=== PATIENT | male | born 1945 | race Caucasian/White ===

== ENCOUNTER 2017-11-11 14:44 | Inpatient (IN) ==
[2017-11-11] MEDS ORDERED: SALINE FLUSH 10ml SYRINGE IVF PRN (15:04)
[2017-11-11] MEDS ORDERED: ALBUTEROL/IPRATROPIUM 2.5mg-0.5mg/3ml NEB AEROSOL ONE (15:04)
--- NOTE | 2017-11-11 15:50 | Emergency Department Report ---
SOB HPI - General Chief Complaint: Shortness of Breath/Dyspnea <Shaun Garcia Yg 11/11/17 17:27> Stated Complaint: soa,weakness <Shaun Garcia Yg 11/11/17 17:27> Source: patient <Nichol Green 11/11/17 15:52> Mode of arrival: wheelchair <Nichol Green 11/11/17 15:52> Limitations: no limitations <Nichol Green 11/11/17 15:52> - History of Present Illness Pt presents with a c/o SOA for the last 2 days. Pt has an extensive history of diabetes, COPD, iain BKA etc. PT continues to smoke and is morbidly obese. Pt is vague in his complaint. He does report no BM for the last 3 days and pain to his right lower abdomen where he gives himself insulin. Pt denies fever, chest pain, nausea, vomiting, productive cough, dizziness, or KHALIL <Nichol Green 11/11/17 15:52> MD Complaint: shortness of breath <Nichol Green 11/11/17 15:52> Onset (ago): unknown <Nichol Green 11/11/17 15:52> Context: recent illness (pneumonia a month ago) <Nichol Green 15:52> Consistency/Duration: constant <Nichol Green 11/11/17 15:52> Relieving factors: nothing <Nichol Green 11/11/17 15:52> Exacerbating factors: lying flat, exertion, movement, coughing <Nichol Green 11/11/17 15:52> Known history of: COPD, diabetes <Nichol Green 11/11/17 15:52> - Related Data Home Medications Medication Instructions Recorded Confirmed Trazodone HCl 150 mg PO HS PRN #0 10/18/14 11/11/17 Albuterol HFA Inhaler [Ventolin 2 puff ORAL INH Q4HR PRN 09/06/17 11/11/17 Hfa 90 mcg/actuation] Bumetanide [Bumetanide] 4 mg PO BID 09/06/17 11/11/17 Carvedilol [Coreg] 6.25 mg PO BID 09/06/17 11/11/17 Insulin Aspart [Novolog Flexpen] 20 unit SQ TIDWM 09/06/17 11/11/17 Insulin Detemir [Levemir] 20 unit SQ HS 09/06/17 11/11/17 Levothyroxine Sodium 25 mcg PO DAILY 09/06/17 11/11/17 [Levothyroxine Sodium] Levothyroxine Sodium 300 mcg PO DAILY 09/06/17 11/11/17 [Levothyroxine Sodium] Stiolto Respimat (tiotropium) 2.5 2 puff INH DAILY 10/07/17 11/11/17 mcg-olodaterol 2.5 mcg/actuation inhalation Aspirin [ASA] 325 mg PO HS 11/11/17 11/11/17 Cholecalciferol [Vit. D-3] 2,000 unit PO DAILY 11/11/17 11/11/17 Simvastatin [Zocor] 40 mg PO HS 11/11/17 11/11/17 Previous Rx's Medication Instructions Recorded Neurontin (gabapentin) 300 mg 300 mg PO TID #270 cap 10/07/17 capsule <Shaun Garcia 11/11/17 17:27> Allergies Allergy/AdvReac Type Severity Reaction Status Date / Time Tetanus Vaccines and Toxoid Allergy Mild EDEMA Verified 10/07/17 15:07 Penicillins Allergy Unknown Verified 10/07/17 15:07 <Shaun Garcia 11/11/17 17:27> Review of Systems All systems: reviewed and negative except as stated <Nichol Green 01/24 15:52> Constitutional: Reports: as per HPI <Nichol Green 11/11/17 15:52> Cardiovascular: Reports: as per HPI <Nichol Green 11/11/17 15:52> Respiratory: Reports: as per HPI <Nichol Green 11/11/17 15:52> Gastrointestinal: Reports: as per HPI <Nichol Green 11/11/17 15:52> Musculoskeletal: Reports: as per HPI <Nichol Green 11/11/17 15:52> Neurological: Reports: as per HPI <Nichol Green 11/11/17 15:52> PFSH Patient Stated Medical History Cataracts Yes Coronary Artery Disease Yes Myocardial Infarction Yes Chronic Obstructive Pulmonary Yes Disease (COPD) Diabetes Mellitus Type 2 Yes: INSULIN DEPENDENT Gastroesophageal Reflux Yes Disease Hx Renal Disease Yes MRSA Yes Post Traumatic Stress Disorder Yes Clinic Medical History Depression (Chronic Medical) Noncompliance with diet and medication regimen (Chronic Medical) Hypogonadism in male (Chronic Medical) Morbid obesity (Chronic Medical) PVD (peripheral vascular disease) (Chronic Medical) Chronic kidney disease (CKD) stage G3a/A1, moderately decreased glomerular filtration rate (GFR) between 45-59 mL/min/1.73 square meter and albuminuria creatinine ratio less than 30 mg/g (Chronic Medical) Hypothyroidism (Chronic Medical) ASCVD (arteriosclerotic cardiovascular disease) (Chronic Medical) COPD (chronic obstructive pulmonary disease) (Chronic Medical) Tobacco Abuse Type 2 diabetes mellitus treated with insulin (Chronic Medical) <Shaun Garcia - 11/11/17 17:27> Surgical History: 1) 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 2) Right Femoral Posterior Tibial Bypass 11/17. 3) Cholecystectomy. 4) Stents in leg. 5) Tonsillectomy. 6) Negative screening Colonoscopy - 2009 <Nichol Green 11/11/17 15:52> - Social History Smoking status: Current every day smoker <Nichol Green 11/11/17 15:52> Packs-years: 52 <Nichol Green 11/11/17 15:52> Alcohol intake frequency: does not drink <Nichol Green 11/11/17 15:52> Current occupational status: retired <Nichol Green 11/11/17 15:52> Physical Exam - Limitations Limitations: no limitations <Nichol Green 11/11/17 15:52> - General General appearance: alert, in no apparent distress <Nichol Green 11/11 15:52> - Normal Exams: Head:: Normocephalic without trauma <Nichol Green 11/11/17 15:52> Eyes:: Pupils are PERRLA w/ EOMI <Nichol Green 11/11/17 15:52> Neck:: Full range of motion, without adenopathy <Nichol Green 15:52> Cardiovascular:: Regular rate and rhythm, without murmur or gallop, Pulses 2+ all extremities, capillary refill, <2 seconds all extremities <Nichol Green 11/11/17 15:52> Musculoskeletal:: No tenderness, or deformity noted, good range of motion, all extremities <Nichol Green 11/11/17 15:52> Integumentary:: No rashes <Nichol Green 11/11/17 15:52> Neurological:: Patient is alert, and oriented, cranial nerves, motor/sensory/ cerebellar, exams w/o gross deficits, to observation <Nichol Green 01/24 15:52> - Expanded Respiratory Exam Location: Left: wheezes, rhonchi, decreased breath sounds, Right: wheezes, rhonchi, Upper: wheezes, rhonchi, Lower: wheezes, rhonchi, decreased breath sounds <Nichol Green 11/11/17 15:52> - Abdominal Exam Abdominal exam: Present: distention, hyperactive bowel sounds <Nichol Green 11/11/17 15:52> Course Vital Signs Blood Pressure 149/65 H 11/11/17 14:56 Temperature 98.5 F 11/11/17 14:57 Pulse Rate 73 11/11/17 15:32 Respiratory Rate 15 11/11/17 15:56 Blood Pressure 133/57 11/11/17 15:32 Pulse Oximetry 100 11/11/17 15:56 <Shaun Garcia - 11/11/17 17:27> Shortness of Breath/Dyspnea - MDM Narrative Medical decision making narrative: Lab, X ray, and EKG reviewed. Pt reports some relief of SOA after Duoneb treatment. Hospitalist notified of findings and will admit pt as observation at this time with a consult to pt claims consultant. Findings discussed with pt who voices understanding of further care. <Nichol Green 11/11/17 17:12> - Differential Diagnosis Likely: acute exacerbation of chronic obstructive airways disease, congestive heart failure, community acquired pneumonia, asthma with exacerbation ( constipation, SBO) <Nichol Green R - 11/11/17 15:52> - Lab Data Attestation: I reviewed the patient's lab results. <Nichol Green R - 11/11 17:12> Result diagrams: 11/11/17 15:36 11/11/17 15:36 <Shaun Garcia C - 11/11/17 17:27> Lab Results 11/11/17 11/11/17 Range/Units 15:36 15:36 WBC 5.6 (4.5-11.0) T/MM3 RBC 4.51 (4.50-5.90) M/MM3 Hgb 13.0 L (13.5-17.5) GM/DL Hct 45.1 (41-53) % MCV 100.0 (80-100) UM3 MCH 28.8 (26-34) UUG MCHC 28.8 L (31-37) GM/DL RDW Std Deviation 66.4 H (36.9-50.2) FL Plt Count 108 L (130-400) T/MM3 MPV 11.0 (9.4-12.4) UM3 Immature Gran % (Auto) 0.4 (0.0-0.5) % Neut % (Auto) 78.4 H (33-66) % Lymph % (Auto) 11.3 L (23-45) % [place] % (Auto) 8.2 (0-9.0) % Eos % (Auto) 1.2 (0-4) % Baso % (Auto) 0.5 (0-2) % Neut # (Auto) 4.4 (1.8-7.7) T/MM3 Lymph # (Auto) 0.6 L (1-4.8) T/MM3 [place] # (Auto) 0.5 (0-0.8) T/MM3 Eos # (Auto) 0.1 (0-0.5) T/MM3 Baso # (Auto) 0.0 (0-0.2) T/MM3 Abs Immat Gran (auto) 0.02 (0.00-0.03) T/MM3 Turbidity < 20 (0-20) Sodium 142 (134-144) MEQ/L Potassium 5.4 H (3.6-5) MEQ/L Chloride 96 L (98-107) MEQ/L Carbon Dioxide 35 H (22-30) MEQ/L Anion Gap 11 (5-15) MEQ/L BUN 52.0 H* (9-20) MG/DL Creatinine 2.7 H (0.8-1.5) mg/dL GFR Calculation 23 BUN/Creatinine Ratio 19 (6-26) RATIO Glucose 124 H (75-110) MG/DL Calculated Osmolality 288 H (261-280) MOSM/KG Calcium 8.5 (8.4-10.2) MG/DL Total Bilirubin 0.70 (0.20-1.30) MG/DL Icterus Index < 2 (0-7) AST 15 L (17-59) U/L ALT 29 (21-72) U/L Alkaline Phosphatase 147 H (38-126) U/L Troponin I 0.026 (0-0.12) ng/ml NT-Pro-B Natriuret Pep 99386 H (0-175) pg/mL Total Protein 7.3 (6.3-8.2) g/dL Albumin 3.8 (3.5-5.0) g/dL Globulin 3.5 (2.4-3.6) G/DL Albumin/Globulin Ratio 1.1 (1.1-2.2) RATIO Specimen Hemolysis < 15 (0-25) <Shaun Garcia - 11/11/17 17:27> Lab Results 11/11/17 11/11/17 Range/Units 15:36 15:36 WBC 5.6 (4.5-11.0) T/MM3 RBC 4.51 (4.50-5.90) M/MM3 Hgb 13.0 L (13.5-17.5) GM/DL Hct 45.1 (41-53) % MCV 100.0 (80-100) UM3 MCH 28.8 (26-34) UUG MCHC 28.8 L (31-37) GM/DL RDW Std Deviation 66.4 H (36.9-50.2) FL Plt Count 108 L (130-400) T/MM3 MPV 11.0 (9.4-12.4) UM3 Immature Gran % (Auto) 0.4 (0.0-0.5) % Neut % (Auto) 78.4 H (33-66) % Lymph % (Auto) 11.3 L (23-45) % [place] % (Auto) 8.2 (0-9.0) % Eos % (Auto) 1.2 (0-4) % Baso % (Auto) 0.5 (0-2) % Neut # (Auto) 4.4 (1.8-7.7) T/MM3 Lymph # (Auto) 0.6 L (1-4.8) T/MM3 [place] # (Auto) 0.5 (0-0.8) T/MM3 Eos # (Auto) 0.1 (0-0.5) T/MM3 Baso # (Auto) 0.0 (0-0.2) T/MM3 Abs Immat Gran (auto) 0.02 (0.00-0.03) T/MM3 Turbidity < 20 (0-20) Sodium 142 (134-144) MEQ/L Potassium 5.4 H (3.6-5) MEQ/L Chloride 96 L (98-107) MEQ/L Carbon Dioxide 35 H (22-30) MEQ/L Anion Gap 11 (5-15) MEQ/L BUN 52.0 H* (9-20) MG/DL Creatinine 2.7 H (0.8-1.5) mg/dL GFR Calculation 23 BUN/Creatinine Ratio 19 (6-26) RATIO Glucose 124 H (75-110) MG/DL Calculated Osmolality 288 H (261-280) MOSM/KG Calcium 8.5 (8.4-10.2) MG/DL Total Bilirubin 0.70 (0.20-1.30) MG/DL Icterus Index < 2 (0-7) AST 15 L (17-59) U/L ALT 29 (21-72) U/L Alkaline Phosphatase 147 H (38-126) U/L Troponin I 0.026 (0-0.12) ng/ml NT-Pro-B Natriuret Pep 93640 H (0-175) pg/mL Total Protein 7.3 (6.3-8.2) g/dL Albumin 3.8 (3.5-5.0) g/dL Globulin 3.5 (2.4-3.6) G/DL Albumin/Globulin Ratio 1.1 (1.1-2.2) RATIO Specimen Hemolysis < 15 (0-25) <Nichol Green 11/11/17 17:12> - Radiology Data Attestation: I reviewed the patient's radiology results. (read per Dr Segura) <Ncihol Green 11/11/17 17:12> - EKG Data EKG #1 EKG attestation: Yes: I reviewed and interpreted this EKG. <Nichol Green 11/11/17 17:12> EKG results narrative: Sinus rhythm with first-degree AV block. Right bundle branch block. 72 bpm. No STEMI. Similar to to 03/24. <Luz Garciak Yg Del Valle 11/11/17 17:27> EKG shows normal: sinus rhythm <Nichol Green 11/11/17 17:12> Rate: normal <Nichol Green 11/11/17 17:12> Rhythm: NSR <Nichol Green 11/11/17 17:12> Lagro/QRS: RBBB <Nichol Green 11/11/17 17:12> Heart block present: 1st Degree <Nichol Green 11/11/17 17:12> Disposition Clinical Impression: Dyspnea Qualifiers: Dyspnea type: shortness of breath Qualified Code(s): R06.02 - Shortness of breath <Shaun Garcia Yg Eligio 11/11/17 17:27> Disposition: 02 To [facility] Acute Care <GarciaShaun Yg Eligio 11/11/17 17:27> Instructions: <Shaun Garcia 11/11/17 17:27> Prescriptions: No Action Insulin Aspart [Novolog Flexpen] 20 unit SQ TIDWM Carvedilol [Coreg] 6.25 mg PO BID Levothyroxine Sodium [Levothyroxine Sodium] 25 mcg PO DAILY Levothyroxine Sodium [Levothyroxine Sodium] 300 mcg PO DAILY Bumetanide [Bumetanide] 4 mg PO BID Insulin Detemir [Levemir] 20 unit SQ HS Aspirin [ASA] 325 mg PO HS Cholecalciferol [Vit. D-3] 2,000 unit PO DAILY Trazodone HCl 150 mg PO HS PRN #0 PRN Reason: Prn Orders Albuterol HFA Inhaler [Ventolin Hfa 90 mcg/actuation] 2 puff ORAL INH Q4HR PRN PRN Reason: Shortness Of Air/Wheezing Simvastatin [Zocor] 40 mg PO HS Neurontin (gabapentin) 300 mg capsule 300 mg PO TID #270 cap Stiolto Respimat (tiotropium) 2.5 mcg-olodaterol 2.5 mcg/actuation inhalation 2 puff INH DAILY <Shaun Garcia 11/11/17 17:27> Referrals: Baljeet Keller MD [Family Provider] - <Shaun Garcia 11/11 17:27> Forms: <Shaun Garcia 11/11/17 17:27> Time of Disposition: 17:12 <Nichol Green 11/11/17 17:12> - Seen By: midlevel <Nichol Green 11/11/17 17:12>
--- NOTE | 2017-11-11 16:06 | XRay Report ---
EXAM: XR acute abdomen series DATE: 11/11/2017 12:00 AM ENCOUNTER: Initial INDICATION: SOA, Constipation COMPARISON STUDY: Chest radiographs 09/06/2017 FINDINGS: Evaluation limited by underpenetration from patient body habitus. Life support devices: Unchanged left pectoral dual-chamber pacer device. Lungs: Normal lung volumes. No focal airspace consolidation. Normal pulmonary vasculature. Pleura: No pleural effusions. No pneumothorax. Heart and Mediastinum: Cardiomegaly. The great vessels of the thorax are within normal limits. Abdomen: Nonobstructive bowel gas pattern. Mild to moderate colonic gas and stool. No intraperitoneal free air. Cholecystectomy clips noted. Skeletal Structures: Postoperative changes of median sternotomy. The visualized skeletal structures are otherwise grossly normal. IMPRESSION: 1. Mild to moderate colonic gas and stool with a grossly nonobstructive bowel gas pattern allowing for limited penetration from patient body habitus. 2. No acute cardiopulmonary process appreciated again allowing for limitations related to patient body habitus. .
--- NOTE | 2017-11-11 17:43 | History & Physical Report ---
History of Present Illness Date: 11/11/17 Chief complaint: weakness HPI: This is 72-year-old patient of Dr. Matos and Dr Dee who states that for the past 5 days he has become increasingly weak and fatigued. Despite his bilateral amputation he is normally independently functional but today required assistance just with use of the bathroom from his . He completed a course of steroids and antibiotics just 2 days prior to beginning to feel the way he is today. He denies fevers chills nausea diarrhea. He knows of no sick contacts. Review of Systems All systems PM: 10-point ROS was reviewed, no additional remarkable complaints except Past Medical History Patient Stated Medical History Cataracts Yes Coronary Artery Disease Yes Myocardial Infarction Yes Chronic Obstructive Pulmonary Yes Disease (COPD) Diabetes Mellitus Type 2 Yes: INSULIN DEPENDENT Gastroesophageal Reflux Yes Disease Hx Renal Disease Yes MRSA Yes Post Traumatic Stress Disorder Yes Clinic Medical History Depression (Chronic Medical) Noncompliance with diet and medication regimen (Chronic Medical) Hypogonadism in male (Chronic Medical) Morbid obesity (Chronic Medical) PVD (peripheral vascular disease) (Chronic Medical) Chronic kidney disease (CKD) stage G3a/A1, moderately decreased glomerular filtration rate (GFR) between 45-59 mL/min/1.73 square meter and albuminuria creatinine ratio less than 30 mg/g (Chronic Medical) Hypothyroidism (Chronic Medical) ASCVD (arteriosclerotic cardiovascular disease) (Chronic Medical) COPD (chronic obstructive pulmonary disease) (Chronic Medical) Tobacco Abuse Type 2 diabetes mellitus treated with insulin (Chronic Medical) Surgical History: 1) 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 2) Right Femoral Posterior Tibial Bypass 11/17. 3) Cholecystectomy. 4) Stents in leg. 5) Tonsillectomy. 6) Negative screening Colonoscopy - 2009 Family History Updates: Reviewed and no additional findings contributory - Social History Smoking status: Current every day smoker Substance use type: does not use Alcohol intake frequency: does not drink Medications Home Medications Medication Instructions Recorded Confirmed Type Trazodone HCl 150 mg PO HS PRN #0 10/18/14 11/11/17 History Albuterol HFA Inhaler [Ventolin 2 puff ORAL INH Q4HR PRN 09/06/17 11/11/17 History Hfa 90 mcg/actuation] Bumetanide [Bumetanide] 4 mg PO BID 09/06/17 11/11/17 History Carvedilol [Coreg] 6.25 mg PO BID 09/06/17 11/11/17 History Insulin Aspart [Novolog Flexpen] 20 unit SQ TIDWM 09/06/17 11/11/17 History Insulin Detemir [Levemir] 20 unit SQ HS 09/06/17 11/11/17 History Levothyroxine Sodium 25 mcg PO DAILY 09/06/17 11/11/17 History [Levothyroxine Sodium] Levothyroxine Sodium 300 mcg PO DAILY 09/06/17 11/11/17 History [Levothyroxine Sodium] Neurontin (gabapentin) 300 mg 300 mg PO TID #270 cap 10/07/17 11/11/17 Rx capsule Stiolto Respimat (tiotropium) 2.5 2 puff INH DAILY 10/07/17 11/11/17 History mcg-olodaterol 2.5 mcg/actuation inhalation Aspirin [ASA] 325 mg PO HS 11/11/17 11/11/17 History Cholecalciferol [Vit. D-3] 2,000 unit PO DAILY 11/11/17 11/11/17 History Simvastatin [Zocor] 40 mg PO HS 11/11/17 11/11/17 History Allergies Allergy/AdvReac Type Severity Reaction Status Date / Time Tetanus Vaccines and Toxoid Allergy Mild EDEMA Verified 10/07/17 15:07 Penicillins Allergy Unknown Verified 10/07/17 15:07 Exam Vital Signs: Temperature 98.5 F 11/11/17 14:57 Pulse Rate 73 11/11/17 15:32 Respiratory Rate 15 11/11/17 15:56 Blood Pressure 133/57 11/11/17 15:32 Pulse Oximetry 100 11/11/17 15:56 Telemetry Rhythm: First Degree AV Block Telemetry Ectopy: Bundle Branch Block, Occasional PVC Height/Weight/BMI: Weight 142.8 kg Comments: Nicotine stains within his mustache. Bilateral lower extremity amputee. Morbidly obese with protuberant belly - Constitutional Present: well nourished, well developed, morbidly obese - Routine HEENT Exam Head: Present: normocephalic, atraumatic Eye: Present: EOMI ENT: Present: mucous membranes moist, dentition normal - Routine Respiratory Exam Present: CTA bilaterally. Absent: wheezes - Routine Cardiovascular Exam Present: RRR, murmur - Routine Abdominal Exam Present: soft, normoactive bowel sounds, tenderness, distended - Routine Extremities Exam Present: normal capillary refill, amputation - Routine Skin Exam Present: dry, warm - Routine Neurological Exam Present: alert, oriented X3, CN II-XII intact - Routine Psychiatric Exam Present: normal affect Results - Labs CBC & Chem 7: 11/11/17 15:36 11/11/17 15:36 Assessment and Plan (1) Weakness generalized Current visit: Yes Status: Acute (2) Hypothyroidism Current visit: No Status: Chronic (3) ASCVD (arteriosclerotic cardiovascular disease) Current visit: No Status: Chronic (4) COPD (chronic obstructive pulmonary disease) Problem details: Tobacco Abuse Current visit: No Status: Chronic (5) Morbid obesity Current visit: No Status: Chronic (6) Noncompliance with diet and medication regimen Current visit: No Status: Suspected Assessment and Plan: Patient is being brought in under observation for further workup. This may be nothing more than a rebound from a tapering week of steroids but maybe something a bit more insidious. The patient does have valvular heart disease and has rather sudden onset of symptoms. Before requesting any formal consultation from Dr Dee, I would like to get a repeat echo to see if there is been any acute decline in cardiac function. Sudden developing valvular failure would be the worst-case scenario for his acute weakness but would explain his symptoms equally as well. More reasonable explanation however is present in his noncompliant use of levothyroxine. Noting that his last studies were over a year ago, he may have severe hypothyroidism. I've ordered a repeat TSH and free T4 DISPOSITION: observation status DVT Prophylaxis: Lovenox - Physician Narrative Narrative: Date: 11/11/17 Time: 172 Hospital Course Summary Disclaimer: The visit summary below is not to be considered part of the above Progress Note.
[2017-11-11 18:39] VITALS: BMI 79.0
[2017-11-11] MEDS ORDERED: TRAZODONE 100 MG TABLET PO PRN (18:43)
[2017-11-11] MEDS ORDERED: ACETAMINOPHEN 325 MG TABLET PO PRN (18:43)
[2017-11-11] MEDS: AZITHROMYCIN 500 MG TABLET PO SCH (19:27)
[2017-11-11] MEDS: ENOXAPARIN 40 MG/0.4 ML INJECTION SQ SCH (19:27)
[2017-11-11] MEDS: PredniSONE 20 MG TABLET PO SCH (19:28)
[2017-11-11] MEDS: BUMETANIDE 1 MG TABLET PO SCH (19:28)
[2017-11-11] MEDS: CARVEDILOL 6.25 MG TABLET PO SCH (19:30)
[2017-11-11] MEDS: INSULIN DETEMIR 100unit/ml INJECTION SQ SCH (22:49)
[2017-11-11] MEDS: INSULIN ASPART 100unit/ml INJECTION SQ SCH (22:49)
[2017-11-11] MEDS: GABAPENTIN 300 MG CAPSULE PO SCH (22:52)
[2017-11-11] MEDS: SIMVASTATIN 40 MG TABLET PO SCH (22:52)
[2017-11-12] MEDS: ALBUTEROL 2.5mg/3ml (0.083%) NEB AEROSOL PRN ×2 (02:15→11:12)
[2017-11-12] MEDS: LEVOTHYROXINE 25 MCG TABLET PO SCH (06:28)
[2017-11-12] MEDS: ENOXAPARIN 40 MG/0.4 ML INJECTION SQ SCH (08:48)
[2017-11-12] MEDS: AZITHROMYCIN 500 MG TABLET PO SCH (08:48)
[2017-11-12] MEDS: BUMETANIDE 1 MG TABLET PO SCH ×2 (08:48→18:09)
[2017-11-12] MEDS: INSULIN ASPART 100unit/ml INJECTION SQ SCH ×3 (08:48→18:09)
[2017-11-12] MEDS: LEVOTHYROXINE 150 MCG TABLET PO SCH (08:49)
[2017-11-12] MEDS: CARVEDILOL 6.25 MG TABLET PO SCH ×2 (08:49→18:09)
[2017-11-12] MEDS: GABAPENTIN 300 MG CAPSULE PO SCH ×3 (08:49→20:19)
[2017-11-12] MEDS: PredniSONE 20 MG TABLET PO SCH (08:49)
--- NOTE | 2017-11-12 10:13 | Echocardiogram ---
DATE OF PROCEDURE November 11, [address] Rikki Calvo This is a two-dimensional echo with spectral Doppler, color-flow and M-mode. It was obtained in a patient with weakness and valve disease. It is a technically very difficult study. Left atrium is dilated. Left ventricular end-diastolic dimension is normal. Left ventricle wall thickness increased. LV systolic function is normal with ejection fraction of about 55%. Right atrium is dilated. Right ventricle is dilated. Aortic root dimension is at the upper limits of normal. Mitral valve annulus is calcified. Mitral valve leaflets are sclerotic with no stenosis. Mild mitral regurgitation is present. Aortic valve shows fibrocalcific changes with restriction on opening motion. Transaortic velocities are increased with peak velocity of 3.34 m/sec with peak gradient of 45 and mean gradient of 28. Aortic valve area is calculated at 0.71 cm2. There is no aortic insufficiency. Tricuspid valve shows moderate tricuspid regurgitation with moderate pulmonary hypertension with estimated pulmonary artery systolic pressure of 59. Pulmonary valve shows mild pulmonary insufficiency. There is no pericardial effusion. IMPRESSION 1. Technically difficult study. 2. Biatrial dilation. 3. Right ventricular dilation. 4. Concentric left ventricular hypertrophy. 5. Mitral annulus calcification with mitral sclerosis and mild mitral regurgitation. 6. Severe aortic stenosis with a valve area of 0.7 cm2. 7. Moderate tricuspid regurgitation with moderate pulmonary hypertension with estimated pulmonary artery systolic pressure of 59. 8. Mild pulmonary insufficiency. MTDD
[2017-11-12] MEDS: SIMVASTATIN 40 MG TABLET PO SCH (20:19)
[2017-11-12] MEDS: INSULIN DETEMIR 100unit/ml INJECTION SQ SCH (20:20)
--- NOTE | 2017-11-12 22:08 | Progress Note ---
- Date 11/12/17 Subjective: Patient was seen before noon and notably more confused than yesterday. Surely requesting to go home. Conversation was responsive but nonsensical and patient was increasingly drowsy until placed on BiPAP. Showed initial improvement after a few hours on this Objective Vital signs: Temperature 96.2 F L 11/12/17 08:00 Pulse Rate 67 11/12/17 16:00 Respiratory Rate 20 11/12/17 14:00 Blood Pressure 129/78 11/12/17 14:00 Pulse Oximetry 97 11/12/17 14:00 Rhythm: Pulseless Electrical Activity - Constitutional Present: mild distress, well developed, morbidly obese, cooperative - Routine HEENT Exam Head: Present: normocephalic, atraumatic Eye: Present: EOMI, PERRL ENT: Present: mucous membranes moist, dentition normal - Routine Respiratory Exam Present: wheezes, diminished air movement - Routine Cardiovascular Exam Present: RRR, S1, S2. Absent: murmur - Routine Abdominal Exam Present: soft, normoactive bowel sounds, non distended. Absent: tenderness - Routine Extremities Exam Present: edema, amputation - Routine Skin Exam Present: intact, dry, warm - Routine Neurological Exam Present: CN II-XII intact, altered mental status. Absent: oriented X3 - Routine Lymphatic Exam Lymphatic: Absent: adenopathy - Routine Psychiatric Exam Present: unable to assess Results - Labs CBC & Chem 7: 11/13/17 05:59 11/13/17 08:53 - ABG Interpretation Interpretation: respiratory acidosis - Echocardiogram History of Echocardiogram: Taken and results pending Assessment and Plan (1) Encephalopathy pulmonary Current visit: Yes Status: Acute (2) Uncompensated respiratory acidosis Current visit: Yes Status: Acute (3) Weakness generalized Current visit: Yes Status: Acute (4) Hypothyroidism Current visit: No Status: Chronic (5) ASCVD (arteriosclerotic cardiovascular disease) Current visit: No Status: Chronic (6) COPD (chronic obstructive pulmonary disease) Problem details: Tobacco Abuse Current visit: No Status: Chronic (7) Morbid obesity Current visit: No Status: Chronic (8) Noncompliance with diet and medication regimen Current visit: No Status: Suspected Assessment and Plan: Patient has had significant sudden worsening of mental status with the severe CO2 retention prompted placement on BiPAP. Does not show clinical signs of sepsis. He does have a significant bit of agitation after being on it for a while and I wonder if there is not perhaps some underlying other mechanism creating is discomfort such as chronic alcoholism that he had denied. Steroids are ongoing and he did not have a breathing treatment early in the morning as they were by request. I am leaning away from valvular failure or gross hypothyroidism after looking at the current developments. Agitation will have to be controlled with some Ativan and I'm writing for some scheduled Librium as well. Repeat chest x-Bong and lab work for the morning DISPOSITION: converted inpatient status - Physician Narrative Narrative: Date: 11/12/17 Time: 2204 Hospital Course Summary Disclaimer: The visit summary below is not to be considered part of the above Progress Note.
[2017-11-13] MEDS: LEVOTHYROXINE 150 MCG TABLET PO SCH (06:01)
[2017-11-13] MEDS: LEVOTHYROXINE 25 MCG TABLET PO SCH (06:03)
[2017-11-13] MEDS ORDERED: SODIUM POLYSTYRENE SULFONATE 15 GM/60 ML BOTTLE PO SCH (07:00)
[2017-11-13 07:14] VITALS: TEMP 98
[2017-11-13] MEDS ORDERED: SODIUM POLYSTYRENE SULFONATE 15 GM/60 ML BOTTLE RECTALLY ONE (08:19)
[2017-11-13] MEDS: CARVEDILOL 6.25 MG TABLET PO SCH (08:28)
[2017-11-13] MEDS: ENOXAPARIN 40 MG/0.4 ML INJECTION SQ SCH (08:42)
[2017-11-13] MEDS: GABAPENTIN 300 MG CAPSULE PO SCH (08:43)
[2017-11-13] MEDS: PredniSONE 20 MG TABLET PO SCH (08:43)
[2017-11-13] MEDS: INSULIN ASPART 100unit/ml INJECTION SQ SCH ×2 (08:43→12:50)
[2017-11-13] MEDS: AZITHROMYCIN 500 MG TABLET PO SCH (08:43)
--- NOTE | 2017-11-13 08:53 | XRay Report ---
Indication: Resp acidosis PROCEDURE: XR chest 1V: Encounter: Initial Comparison: September 06, 2017 Findings: Worsening airspace consolidation in the right lung. Obscuration of the left hemidiaphragm probably due to soft tissue overlap and an enlarged cardiac silhouette. No pneumothorax or definite effusion. Cardiac silhouette is severely enlarged. Patient is rotated limiting evaluation of the mediastinal contours. Pulmonary vascularity is indistinct. Impression: Worsening severe right-sided airspace disease. .
[2017-11-13] MEDS ORDERED: SUCCINYLCHOLINE 20mg/mL 10mL INJECTION IVP ONE (09:53)
[2017-11-13] MEDS ORDERED: PROPOFOL 200 MG/20 ML INJECTION IVP ONE (09:53)
--- NOTE | 2017-11-13 10:08 | CT Scan Report ---
Indication: respiratory failure, effusion? big enough to tap? PROCEDURE: CT chest wo con: Encounter: Initial Comparison: Chest x-ray from yesterday and chest CT dated May 04, 2016 Technique: Axial CT images were performed through the chest without intravenous contrast. Coronal and sagittal two-dimensional reformats. Automated Exposure Control and Iterative Reconstruction dose reducing techniques were utilized. Findings: There is interstitial edema with groundglass opacities present. No focal lobar consolidation appreciated. Stable 1.5 cm right upper lobe nodule on axial image #33. Lungs are hypoinflated. Chronic areas of linear scarring and bullous change in both lower lobes. No pleural effusion. No pneumothorax. The central airways are patent. The exam was obtained in expiration. Gynecomastia noted incidentally. No axillary adenopathy. There are enlarged right paratracheal nodes seen on axial image #21 measuring up to 1.2 cm in short axis, new from the prior exam. There is a prevascular node on image #21 measuring 1.1 cm in short axis. Cardiac silhouette is severely enlarged. No pericardial effusion. Enlargement of the central pulmonary arteries consistent with pulmonary artery hypertension. The upper abdomen shows small volume ascites. Bone windows show no acute findings. Impression: 1. Hypoinflation with mild to moderate pulmonary edema. 2. No pleural effusion. 3. Upper mediastinal adenopathy that could be reactive or potentially due to lymphoma/metastatic disease. Follow-up exam in 3-6 months is suggested to evaluate for stability. 4. Severe cardiomegaly and pulmonary artery hypertension. 5. Stable 1.5 cm right upper lobe pulmonary nodule. .
[2017-11-13] MEDS: DEXMEDETOMIDINE 200 MCG in NS 50 ML IV SCH ×2 (10:25→12:05)
[2017-11-13] MEDS ORDERED: EPINEPHRINE 1 MG/10 ML PFS ONE (10:30)
[2017-11-13] MEDS ORDERED: DEXMEDETOMIDINE 200 MCG in NS 50 ML IV SCH (10:30)
[2017-11-13] MEDS ORDERED: SODIUM BICARBONATE 8.4% (50mEq/50ml) PFS (1 amp) ONE (10:30)
--- NOTE | 2017-11-13 10:36 | XRay Report ---
Indication: post intubation PROCEDURE: XR chest post-procedure 1V: Encounter: Initial Comparison: Chest CT from today Findings: New endotracheal tube in place with the tip projecting 3.3 cm above the neena. Poststernotomy changes and left cardiac pacemaker again noted No visible pneumothorax. Continued perihilar predominant airspace disease on the right side without significant change. Cardiac silhouette remains severely enlarged. Mediastinal contours are grossly stable. Impression: New endotracheal tube appears appropriately positioned. .
--- NOTE | 2017-11-13 10:43 | Pulmonology Consult Note ---
History of Present Illness Consult date: 11/13/17 Requesting physician: Rikki Calvo Reason for consult: other (Respiratory Failure) Chief complaint: Weakness History of present illness: Patient is a 72-year-old male that was admitted on 11/11 for increased weakness and SOB. Patient has a history of COPD and is a bilateral BTKA. Patient currently unresponsive, information received from staff and chart. WBC normal at 5.6 on admission, creatinine 2.7, pro-BNP [id number]. Patient was started on diuresis per primary. Patient became lethargic yesterday per report, initial ABG 7.12/107/79.5/35.1, patient was placed on BiPAP. Repeat labs this am showed worsening hyperkalemia and renal failure, repeat ABG showed 7.11/103/64.9 /33.3. He was transferred to ICU this am and plan for intubation and mechanical ventilation. While attempting intubation, patient coded. ROSC was achieved and patient is currently sedated and intubated. We have been consulted for respiratory failure and appreciate the consult. Review of Systems ROS unobtainable: due to endotracheal tube [facility] Medical History Depression (Chronic Medical) Noncompliance with diet and medication regimen (Suspected Medical) Hypogonadism in male (Chronic Medical) Morbid obesity (Chronic Medical) PVD (peripheral vascular disease) (Chronic Medical) Chronic kidney disease (CKD) stage G3a/A1, moderately decreased glomerular filtration rate (GFR) between 45-59 mL/min/1.73 square meter and albuminuria creatinine ratio less than 30 mg/g (Chronic Medical) Hypothyroidism (Chronic Medical) ASCVD (arteriosclerotic cardiovascular disease) (Chronic Medical) COPD (chronic obstructive pulmonary disease) (Chronic Medical) Tobacco Abuse Type 2 diabetes mellitus treated with insulin (Chronic Medical) Surgical History: 1) 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 2) Right Femoral Posterior Tibial Bypass 11/17. 3) Cholecystectomy. 4) Stents in leg. 5) Tonsillectomy. 6) Negative screening Colonoscopy - 2009 Family History Updates: Reviewed and no additional findings contributory - Social History Smoking status: Current every day smoker Packs-years: 50 Substance use type: does not use Alcohol intake frequency: does not drink Current occupational status: retired Medications Home Medications Medication Instructions Recorded Confirmed Type Trazodone HCl 150 mg PO HS PRN #0 10/18/14 11/11/17 History Albuterol HFA Inhaler [Ventolin 2 puff ORAL INH Q4HR PRN 09/06/17 11/11/17 History Hfa 90 mcg/actuation] Bumetanide [Bumetanide] 4 mg PO BID 09/06/17 11/11/17 History Carvedilol [Coreg] 6.25 mg PO BID 09/06/17 11/11/17 History Insulin Aspart [Novolog Flexpen] 20 unit SQ TIDWM 09/06/17 11/11/17 History Insulin Detemir [Levemir] 20 unit SQ HS 09/06/17 11/11/17 History Levothyroxine Sodium 25 mcg PO DAILY 09/06/17 11/11/17 History [Levothyroxine Sodium] Levothyroxine Sodium 300 mcg PO DAILY 09/06/17 11/11/17 History [Levothyroxine Sodium] Neurontin (gabapentin) 300 mg 300 mg PO TID #270 cap 10/07/17 11/11/17 Rx capsule Stiolto Respimat (tiotropium) 2.5 2 puff INH DAILY 10/07/17 11/11/17 History mcg-olodaterol 2.5 mcg/actuation inhalation Aspirin [ASA] 325 mg PO HS 11/11/17 11/11/17 History Cholecalciferol [Vit. D-3] 2,000 unit PO DAILY 11/11/17 11/11/17 History Simvastatin [Zocor] 40 mg PO HS 11/11/17 11/11/17 History Allergies Allergy/AdvReac Type Severity Reaction Status Date / Time Tetanus Vaccines and Toxoid Allergy Mild EDEMA Verified 11/11/17 18:50 Penicillins Allergy Unknown Verified 11/11/17 18:50 Exam Vital signs: Temperature 98.0 F 11/13/17 07:11 Pulse Rate 71 11/13/17 07:30 Respiratory Rate 24 11/13/17 07:11 Blood Pressure 117/46 11/13/17 07:11 Pulse Oximetry 94 11/13/17 07:11 - Constitutional mild distress, morbidly obese - Routine HEENT Exam Head: Present: normocephalic, atraumatic ENT: Present: mucous membranes moist - Routine Neck Exam Present: supple - Routine Respiratory Exam Present: patient mechanically ventilated, decreased breath sounds, wheezes - Routine Cardiovascular Exam Present: S1, S2, no murmur, tachycardia Comments: Pacemaker with occasional pacer spikes - Routine Abdominal Exam Present: soft, non tender Comments: Hypoactive - Routine Extremities Exam Present: no edema, pulses intact, amputation. Absent: cyanosis, clubbing Comments: Bilateral BTKA - Routine Skin Exam Present: intact, dry - Routine Neurological Exam Present: altered mental status - Routine Psychiatric Exam Present: unable to assess Results - Laboratory Findings CBC and BMP: 11/13/17 05:59 11/13/17 08:53 ABG ABG pH 7.118 (7.350-7.450) L* 11/13/17 08:52 ABG pCO2 103 MMHG (34.0-45.0) H* 11/13/17 08:52 ABG pO2 64.9 MMHG (80.0-100.0) L 11/13/17 08:52 ABG O2 Saturation 82.0 % (95.0-98.0) L 11/13/17 08:52 Abnormal lab findings: Abnormal Labs 11/13/17 11/13/17 11/13/17 05:59 05:59 08:52 RBC 4.43 L Hgb 12.6 L MCV 101.1 H MCHC 28.1 L RDW Std Deviation 68.1 H Plt Count 106 L Neut % (Auto) 84.4 H Lymph % (Auto) 7.3 L Lymph # (Auto) 0.5 L ABG pH 7.118 L* ABG pCO2 103 H* ABG pO2 64.9 L ABG HCO3 33.3 H ABG Total CO2 36.4 H ABG O2 Saturation 82.0 L Potassium 6.4 H* D Chloride 92 L Carbon Dioxide 35 H BUN 71.0 H* Creatinine 3.5 H D Glucose 149 H Calculated Osmolality 290 H Calcium 8.3 L AST 15 L Alkaline Phosphatase 137 H Specimen Hemolysis 11/13/17 08:53 RBC Hgb MCV MCHC RDW Std Deviation Plt Count Neut % (Auto) Lymph % (Auto) Lymph # (Auto) ABG pH ABG pCO2 ABG pO2 ABG HCO3 ABG Total CO2 ABG O2 Saturation Potassium 6.4 H* Chloride 94 L Carbon Dioxide BUN 79.0 H* Creatinine 3.3 H Glucose 143 H Calculated Osmolality 294 H Calcium AST Alkaline Phosphatase Specimen Hemolysis 48 H - Diagnostic Findings CT scan - chest: image reviewed (CT with cardiomegaly some vascular congestion, no pleural effusions, right upper lobe 1.5cm nodule) Assessment and Plan - Assessment and Plan Acute on chronic hypercapnic respiratory failure COPD Congestive heart failure CKD with acute insufficiency CHELE/OHS - Uses Cpap at home Hyperkalemia Mild pulmonary HTN - PAP 59 per echo Plan: Vent: AC/PC, R 14, P 6, FiO2 100%, IP 35, very wheezy on exam and hard to bag during intubation, likely with bronchospasms, peak pressures in the 40s, start A /A tx's Q4, pulmicort BID, monitor TV and wean IP as he opens up. Start sedation while on vent. Diuresis per primary, EF 55% per echo. Mild pulmonary HTN, likely WHO group 2/3. Continue to encourage renal management and diuresis. Kayexalate for Hyperkalemia per primary. Recheck ABGs in an hour. Daily CXR while on vent. Continue to follow closely. - Time Spent With Patient Total time spent is greater than 50% in coordination of care (as documented) at patient's floor/unit and/or counseling patient: 25 - 35 minutes
[2017-11-13] MEDS ORDERED: PROPOFOL 500 MG/50 ML VIAL ONE (10:47)
--- NOTE | 2017-11-13 10:57 | Anesthesia Procedure Note ---
IRU ANES Consult Intubation - Date and Time Date and Time: 11/13/17 @ 0953 Diagnosis: Respiratory Failure Allergies/Adverse Reactions: Allergies Allergy/AdvReac Type Severity Reaction Status Date / Time Tetanus Vaccines and Toxoid Allergy Mild EDEMA Verified 11/11/17 18:50 Penicillins Allergy Unknown Verified 11/11/17 18:50 - Vital Signs Weight: 144.2 kg Initial Vital Signs: Sepsis Recent Fever Within 48 Hours No 11/11/17 14:44 Sepsis Suspicion of Infection No 11/11/17 14:44 Sepsis New/Unexplained Change in Mental Status No 11/11/17 14:44 Sepsis Score/Level No Definite Risk 11/11/17 14:44 Sepsis Action Taken by Nursing No Action 11/11/17 14:44 Post Vital Signs: Temperature 98.0 F 11/13/17 07:11 Temperature Source Temporal Artery Scan 11/13/17 07:11 Sepsis Recent Fever Within 48 Hours No 11/11/17 14:44 Sepsis Suspicion of Infection No 11/11/17 14:44 Sepsis New/Unexplained Change in Mental Status No 11/11/17 14:44 Sepsis Score/Level No Definite Risk 11/11/17 14:44 Sepsis Action Taken by Nursing No Action 11/11/17 14:44 Pulse Rate 71 11/13/17 07:30 Pulse Rhythm 11/13/17 07:30 Pulse Strength Normal 11/11/17 14:57 Respiratory Rate 24 11/13/17 07:11 Respiratory Effort Short of Breath 11/13/17 07:30 Respiratory Depth Shallow 11/13/17 07:30 Respiratory Pattern 11/13/17 07:30 Blood Pressure 117/46 11/13/17 07:11 Blood Pressure Mean 69 11/13/17 07:11 Blood Pressure Position Supine 11/13/17 07:11 Pulse Oximetry 94 11/13/17 07:11 Oxygen Delivery Method 11/13/17 07:11 Oxygen Flow Rate 2 11/12/17 21:40 Fraction of Inspired Oxygen 50 11/13/17 07:11 - Medications Inpatient Medications: Acetaminophen (Tylenol) 325 - 650 mg PO Q5H PRN PRN Reason: Discomfort Albuterol Sulfate (Proventil Neb (0.083%)) 2.5 mg AEROSOL Q6H PRN Last Admin: 11/12/17 11:12 Dose: 2.5 mg Azithromycin (Zithromax) 500 mg PO DAILY [facility]EREE Last Admin: 11/13/17 08:43 Dose: Not Given Bumetanide (Bumex 1 Mg Tab) 4 mg PO [id number] [facility] Last Admin: 11/12/17 18:09 Dose: 4 mg Carvedilol (Coreg) 6.25 mg PO BIDWM [facility] Last Admin: 11/13/17 08:28 Dose: Not Given Chlordiazepoxide HCl (Librium) 25 mg PO TID PRN Last Admin: 11/12/17 20:19 Dose: 25 mg Enoxaparin Sodium (Lovenox) 40 mg SQ DAILY [facility] Last Admin: 11/13/17 08:42 Dose: 40 mg Gabapentin (Neurontin) 300 mg PO TID [facility] Last Admin: 11/13/17 08:43 Dose: Not Given Dexmedetomidine HCl 200 mcg/ (Sodium Chloride) 52 mls @ 7.49 mls/hr IV .Q6H57M [facility] PRN Reason: 0.2 MCG/KG/HR Insulin Aspart (Novolog) 20 unit SQ TIDWM [facility] Last Admin: 11/13/17 08:43 Dose: Not Given Insulin Detemir (Levemir) 20 unit SQ [facility] Last Admin: 11/12/17 20:20 Dose: 20 unit Levothyroxine Sodium (Synthroid) 300 mcg PO ACB [facility] Last Admin: 11/13/17 06:01 Dose: Not Given Levothyroxine Sodium (Synthroid) 25 mcg PO ACB [facility] Last Admin: 11/13/17 06:03 Dose: Not Given Lorazepam (Ativan Inj) 1 mg IVP Q4H PRN Last Admin: 11/13/17 01:48 Dose: 1 mg Prednisone (Deltasone 20 Mg) 40 mg PO WB [facility] Last Admin: 11/13/17 08:43 Dose: Not Given Simvastatin (Zocor) 40 mg PO [facility] Last Admin: 11/12/17 20:19 Dose: 40 mg Sodium Chloride (Iv Flush) 10 - 80 ml IVF PRN PRN PRN Reason: Flushing Last Admin: 11/12/17 08:48 Dose: 10 ml Sodium Polystyrene Sulfonate (Kayexelate) 30 gm PO BID [facility] Last Admin: 11/13/17 06:55 Dose: 30 gm - Home Medications Home Medications: Home Medications Medication Instructions Recorded Confirmed Type Trazodone HCl 150 mg PO HS PRN #0 10/18/14 11/11/17 History Albuterol HFA Inhaler [Ventolin 2 puff ORAL INH Q4HR PRN 09/06/17 11/11/17 History Hfa 90 mcg/actuation] Bumetanide [Bumetanide] 4 mg PO BID 09/06/17 11/11/17 History Carvedilol [Coreg] 6.25 mg PO BID 09/06/17 11/11/17 History Insulin Aspart [Novolog Flexpen] 20 unit SQ TIDWM 09/06/17 11/11/17 History Insulin Detemir [Levemir] 20 unit SQ HS 09/06/17 11/11/17 History Levothyroxine Sodium 25 mcg PO DAILY 09/06/17 11/11/17 History [Levothyroxine Sodium] Levothyroxine Sodium 300 mcg PO DAILY 09/06/17 11/11/17 History [Levothyroxine Sodium] Neurontin (gabapentin) 300 mg 300 mg PO TID #270 cap 10/07/17 11/11/17 Rx capsule Stiolto Respimat (tiotropium) 2.5 2 puff INH DAILY 10/07/17 11/11/17 History mcg-olodaterol 2.5 mcg/actuation inhalation Aspirin [ASA] 325 mg PO HS 11/11/17 11/11/17 History Cholecalciferol [Vit. D-3] 2,000 unit PO DAILY 11/11/17 11/11/17 History Simvastatin [Zocor] 40 mg PO HS 11/11/17 11/11/17 History - Patient History Patient History: I have evaluated this patient and found no changes in the patient's history. - Pertinent Findings Lab: 11/13/17 05:59 11/13/17 08:53 EKG Rhythm: Normal Sinus Rhythm - Physical Exam Respiratory: Tachypnea Cardiovascular: Regular Rate/Rhythm Other Exam: Patient was dusky in apperance, with nasal canula on upon arrival in ICU 4. Full face non-rebreather was place. EKG, SPO2 monitors were place. RSI intubation do to patient respiratory deterioration. 8.[address] ICU staff call for PEA code. CPR was started. Dr. Calvo present to run code. - Procedure Mouth: Edentulous ET Tube Depth at Upper Lip: 23 (cm)
[2017-11-13] MEDS ORDERED: ALBUTEROL/IPRATROPIUM 2.5mg-0.5mg/3ml NEB AEROSOL SCH (11:00)
[2017-11-13] MEDS ORDERED: FentaNYL 1,000 MCG in NS 80 ML IV PRN (11:35)
[2017-11-13] MEDS ORDERED: BUDESONIDE INH.SOLN 0.5mg/2ml NEB AEROSOL SCH (12:00)
--- NOTE | 2017-11-13 12:02 | XRay Report ---
Indication: picc line insertion PROCEDURE: XR chest post-procedure 1V: Encounter: Initial Comparison: November 13, 2017 at 1022 Findings: Endotracheal tube remains in place. New right PICC line seen with the tip projecting over the lower SVC. Severe airspace disease again noted in the right lung. No gross pneumothorax. Cardiomediastinal contours are stable. Impression: New right PICC line tip projects over the lower SVC. .
[2017-11-13] MEDS ORDERED: MORPHINE SULFATE 4mg INJECTION IVP PRN (13:50)
[2017-11-13] MEDS ORDERED: METHYLPREDNISOLONE SOD SUCC 125mg/2ml INJECTION IVP SCH (15:00)
[2017-11-13 15:38] VITALS: BP 104/53; RESP 8; O2SAT 43
[2017-11-13 16:42] VITALS: PULSE 0
--- NOTE | 2017-11-13 18:00 | Discharge Summary ---
Discharge Information Date of admission: 11/12/17 19:17 Anticipated date of discharge: 11/13/17 Attending Physician: Rikki Calvo MD Primary care physician: Quoc Keller MD Consults: 11/13/17 Consult to Anesthesiology [CONS] Routine Reason For Exam: intubation - Discharge Diagnosis (1) due to respiratory failure Status: Acute (2) Uncompensated respiratory acidosis Status: Acute (3) Congestive heart failure with cardiomyopathy and cardiomegaly Status: Acute (4) Encephalopathy pulmonary Status: Acute (5) Weakness generalized Status: Acute (6) Hypothyroidism Status: Chronic (7) ASCVD (arteriosclerotic cardiovascular disease) Status: Chronic (8) COPD (chronic obstructive pulmonary disease) Status: Chronic (9) Morbid obesity Status: Chronic (10) Noncompliance with diet and medication regimen Status: Suspected - Laboratory Labs: 11/13/17 05:59 11/13/17 08:53 History of Present Illness HPI: This is 72-year-old patient of Dr. Matos and Dr Dee who states that for the past 5 days he has become increasingly weak and fatigued. Despite his bilateral amputation he is normally independently functional but today required assistance just with use of the bathroom from his . He completed a course of steroids and antibiotics just 2 days prior to beginning to feel the way he is today. He denies fevers chills nausea diarrhea. He knows of no sick contacts. History of coronary artery bypass graft with revision, multiple stents. Patient was bilateral amputee peripheral vascular disease. Severe COPD, congestive heart failure with cardiomegaly and known severe bi-atrial dilation Objective Vital signs: Temperature 98.0 F 11/13/17 07:11 Pulse Rate 0 L 11/13/17 15:20 Respiratory Rate 8 L 11/13/17 15:15 Blood Pressure 104/53 11/13/17 14:45 Pulse Oximetry 43 L 11/13/17 15:15 Rhythm: Pulseless Electrical Activity Height/Weight/BMI: Weight 144.2 kg - Constitutional Present: severe distress, morbidly obese, obtunded - Routine HEENT Exam Head: Present: atraumatic, cushingoid faces Eye: Present: normal accommodation. Absent: conjunctivae pink - Routine Respiratory Exam Present: patient mechanically ventilated, respiratory distress, diminished air movement - Routine Cardiovascular Exam Present: irregular rhythm - Routine Abdominal Exam Present: soft, non tender, distended - Routine Extremities Exam Present: cyanosis, pallor, amputation - Routine Skin Exam Present: intact, cyanosis - Routine Neurological Exam Present: altered mental status. Absent: motor deficit - Routine Lymphatic Exam Lymphatic: Absent: adenopathy - Routine Psychiatric Exam Present: unable to assess Hospital Course This is a general summary of the patient's hospital course. For more details refer to the complete medical record. 11/12/2017 Patient has had significant sudden worsening of mental status with the severe CO2 retention prompted placement on BiPAP. He does have a significant bit of agitation after being on it for a while and I wonder if there is not perhaps some underlying other mechanism creating is discomfort such as chronic alcoholism that he had denied. Steroids are ongoing and he did not have a breathing treatment early in the morning as they were by request. I am leaning away from valvular failure or gross hypothyroidism after looking at the current developments. Dictation will have to be controlled with some Ativan and I'm writing for some scheduled Librium as well. Repeat chest x-Bong and lab work for the morning 11/13/2017 patient continued to have moderate diuresis overnight. Morning labs showed a potassium of 6.4 and patient was started on Kayexalate. Seen by me at approximately 9 AM and patient was continuing to be obtunded. Nursing reported that he had difficulty with maintaining his BiPAP overnight due to agitation despite having Ativan and Librium. Patient had repeat blood gas which was not reassuring with pH of 7.118. X-ray and showed what appeared bilateral opacity which was initially thought to be fluid buildup possibly in pleuritic spaces. Patient was scheduled for an urgent CT and anesthesia was requested for intubation on patient's arrival to the ICU. The CT could not be contrasted for angiogram due to his chronically poor renal function however it was surprisingly clear of any fluid buildup but did show small bilateral bullae of severe emphysematous disease. Around 9:50 a.m. the patient was intubated and then developed pulseless electrical activity afterward. Code arrest was called in the ICU and initially responded to by Dr. Macias. Initial round of epinephrine was given prior to my arrival. Patient was given 2 more rounds of epinephrine and 2 ampoules of HCO3 to offset the acidosis. Chest compressions were performed for 2 intermittent sessions neither longer than 10 minutes. Patient resumed spontaneous heartbeat with adequate pressures. (For complete notes see code sheet). Patient was maintained on ventilation, Precidex drip and maintained pressures roughly 100/60 afterward. 80 minutes critical care time prior to 1 PM, not including Dr. Alcantar resuscitation code Approximately 130 in the afternoon, a family meeting of at least 8 adults in the room was had to appraise the family of the patient's status. Family had been in discussion for some time prior to this and unanimously were able to come to the conclusion that this was beyond what Mr. Bennett was willing to continue with. At this point and several daughters stated that not only do they want no further code to be performed, they requested that patient be made comfortable and that the patient be extubated and placed on non-rebreather. Initially there was some great notes by family members about placing the patient on BiPAP but this was decided against amongst the family. Requests to pulmonary and cardiology were discontinued when family requested patient be made comfort care Patient 11/13/2017 at 1519 Documented on [employer] speech to text. Efforts to crack speech recognition errors performed, but variation may exist Time spent with patient: greater than 35 minutes Resuscitation Status: Comfort Measures Only Discharge Plan - Discharge Disposition Discharge Date: 11/13/17 *Condition: Improved Reason For Visit (Visit label in EMR): Respiratory acidosis - Discharge Medications *Discharge Medications: No Action Insulin Aspart [Novolog Flexpen] 20 unit SQ TIDWM Carvedilol [Coreg] 6.25 mg PO BID Levothyroxine Sodium [Levothyroxine Sodium] 25 mcg PO DAILY Levothyroxine Sodium [Levothyroxine Sodium] 300 mcg PO DAILY Bumetanide [Bumetanide] 4 mg PO BID Insulin Detemir [Levemir] 20 unit SQ HS Aspirin [ASA] 325 mg PO HS Cholecalciferol [Vit. D-3] 2,000 unit PO DAILY Trazodone HCl 150 mg PO HS PRN #0 PRN Reason: Prn Orders Albuterol HFA Inhaler [Ventolin Hfa 90 mcg/actuation] 2 puff ORAL INH Q4HR PRN PRN Reason: Shortness Of Air/Wheezing Simvastatin [Zocor] 40 mg PO HS Neurontin (gabapentin) 300 mg capsule 300 mg PO TID #270 cap Stiolto Respimat (tiotropium) 2.5 mcg-olodaterol 2.5 mcg/actuation inhalation 2 puff INH DAILY - Referrals/Follow Up - Patient Handouts Patient Handouts: Weakness (GEN) - Dismissal Complete Discharge Instructions are:: Complete Physician Narrative - Narrative Attestation Narrative: Date: 11/13/17 Time: 1755
--- NOTE | 2017-11-13 18:32 | Death Note ---
Providers - Provider Primary care physician: sarkis Admitting clinician: Rikki Calvo Attending Physician: Rikki Calvo Consults: 11/13/17 Consult to Anesthesiology [CONS] Routine Reason For Exam: intubation Pronouncing clinician: Rikki Calvo Diagnosis - PCOD Cause of : Respiratory failure with hypercapnia (likely secondary to worsening congestive heart failure and coronary artery disease) - Contributing Factors (1) due to respiratory failure Status: Acute (2) Uncompensated respiratory acidosis Status: Acute (3) Congestive heart failure with cardiomyopathy and cardiomegaly Status: Acute (4) Encephalopathy pulmonary Status: Acute (5) Weakness generalized Status: Acute (6) Hypothyroidism Status: Chronic (7) ASCVD (arteriosclerotic cardiovascular disease) Status: Chronic (8) COPD (chronic obstructive pulmonary disease) Status: Chronic (9) Morbid obesity Status: Chronic (10) Noncompliance with diet and medication regimen Status: Suspected Summary - Date and Time Date of admission: 11/12/17 19:17 Date of : 11/13/17 Time of : 15:19 - Summary Details: due to respiratory arrest with likely significantly declining congestive heart failure with was cardiomegaly and severe coronary artery disease See discharge summary sheet for days events as well as code sheet - Additional Data Confirmation of as documented by pronouncing clinician: no pulse, no respirations Family: at bedside Attending physician: Rikki Calvo MD Was code activated?: Yes Autopsy requested?: No license examiner notified?: No Organ bank notified?: No Advance directives: No Hospice patient?: No
== END 2017-11-13 17:29 | disposition expired | DRG 640 ==
LOC: MED 14:44 → ED 14:44 → MED 18:30 → CCU 11-13 09:45
PROVIDERS: ADMIT Family Medicine; ATTEND Family Medicine